=== PATIENT | male | born 1960 | race Caucasian/White ===

== ENCOUNTER 2020-07-28 12:07 | Emergency (ER) | payer OTHER ==
--- NOTE | 2020-07-28 13:01 | RAD ---
EXAM: Portable chest PROVIDED CLINICAL HISTORY: Dyspnea COMPARISON: None FINDINGS: Cardiac and mediastinal silhouette is within normal limits. No focal consolidation, pleural fluid or pneumothorax evident. Median sternotomy changes are seen. There is incomplete inclusion of the left lateral costophrenic angle, limiting evaluation for pleural fluid. IMPRESSION: No evidence for an acute cardiopulmonary process.
[2020-07-28 13:06] LABS: #Eosinphils 0.3 thou/uL (0.0-0.7); #Lymphocytes 2.2 thou/uL (1.20-3.40); #Monocytes 1.4 thou/uL (0.11-0.59); %Basophils 0.2 % (0.0-1.0); %Eosinophils 2.7 % (0.0-10.0); %Lymphocytes 18.4 % (21.0-51.0); %Monocytes 11.4 % (0.0-10.0); %Neutrophils 67.3 % (42.0-75.0); Hemoglobin 10.4 g/dL (14.0-18.0); Mean Corpuscular HGB CONC 33.8 g/dL (32.0-36.0); Mean Corpuscular Hemoglobin 31.5 pg (27.0-31.0); Mean Corpuscular Volume 93.4 fL (78.0-98.0); Mean Platelet Volume 7.4 fL (7.4-10.4); Platelet Count 305 thou/uL (130-400); RBC Distribution Width 13.5 % (11.5-14.5); Red Blood Cell (RBC) Count 3.31 mill/uL (4.70-6.10); White Blood Cell (WBC) Count 11.9 thou/uL (4.8-10.8)
[2020-07-28 13:07] LABS: Bilirubin Negative (Negative); Blood, Urine Negative (Negative); Clarity Clear (Clear); Glucose, Urine (Dipstick) Normal (Negative); Ketone, Urine Negative (Negative); Leukocyte Negative Leu/uL (Negative); Nitrite Negative (Negative); Protein, Urine (Dipstick) Negative (Neg-Trace); Specific Gravity, Urine 1.007 (1.002-1.036); Urobilinogen Normal mg/dL (Less than 2)
[2020-07-28 13:30] LABS: ALT (SGPT) 13 U/L (8-55); AST (SGOT) 13 U/L (5-34); Albumin 3.2 g/dL (3.4-4.8); Alkaline Phosphatase 62 U/L (40-110); Anion Gap 14 mmol/L (10-20); BUN (Urea Nitrogen) 5 mg/dL (8.4-25.7); CK (CPK) 128 U/L (30-200); Calc. Creatinine Clearance 0 mL/min (70-130); Calcium 7.7 mg/dL (7.8-10.44); Carbon Dioxide 22 mmol/L (23-31); Chloride 95 mmol/L (98-107); Globulin 2.7 g/dL (2.4-3.5); Glucose 87 mg/dL (80-115); Lipase 59 U/L (8-78); Potassium 3.4 mmol/L (3.5-5.1); Protein, Total 5.9 g/dL (5.8-8.1); Sodium 128 mmol/L (136-145)
[2020-07-28] MEDS ORDERED: methylPREDNISolone Sod Succ/PF 125 MG/2 ML VIAL ONE (14:26)
[2020-07-28 18:36] LABS: SARS-CoV-2 MS2 Positive; SARS-CoV-2 N Gene Negative; SARS-CoV-2 S Gene Negative; SARS-CoV-2 by NAA Not Detected (NotDetected); SARS-CoV-2 orf1ab Negative
== END 2020-07-28 14:36 | disposition home or self-care (01) ==
LOC: ERS 12:07
DX: J45.909 Unspecified asthma, uncomplicated (principal); Z95.1 Presence of aortocoronary bypass graft; E78.5 Hyperlipidemia, unspecified; I10 Essential (primary) hypertension; F17.210 Nicotine dependence, cigarettes, uncomplicated; Z79.899 Other long term (current) drug therapy
CPT/HCPCS: 71045; 80053; 81003; 82550; 83605; 83690; 83880; 84484; 85025; 87040; 87635; 87804; 93005; 96374; J2930; U0003

== ENCOUNTER 2020-09-24 02:41 | Inpatient (IN) | payer OTHER ==
[2020-09-24 03:19] LABS: #Basophils 0.1 thou/uL (0.0-0.2); #Eosinphils 0.2 thou/uL (0.0-0.7); #Lymphocytes 1.6 thou/uL (1.20-3.40); #Monocytes 0.6 thou/uL (0.11-0.59); #Neutrophils 2.6 thou/uL (1.40-6.50); %Basophils 1.4 % (0.0-1.0); %Eosinophils 4.7 % (0.0-10.0); %Lymphocytes 31.3 % (21.0-51.0); %Monocytes 11.1 % (0.0-10.0); %Neutrophils 51.5 % (42.0-75.0); Hemoglobin 14.4 g/dL (14.0-18.0); Mean Corpuscular HGB CONC 36.9 g/dL (32.0-36.0); Mean Corpuscular Volume 92.1 fL (78.0-98.0); Mean Platelet Volume 7.7 fL (7.4-10.4); Platelet Count 239 thou/uL (130-400); RBC Distribution Width 13.2 % (11.5-14.5); Red Blood Cell (RBC) Count 4.23 mill/uL (4.70-6.10)
[2020-09-24] MEDS ORDERED: Ondansetron ODT 8 MG TAB ONE (03:32)
[2020-09-24 03:41] LABS: ALT (SGPT) 10 U/L (8-55); AST (SGOT) 18 U/L (5-34); Albumin 4.1 g/dL (3.4-4.8); Alcohol 192 mg/dL (Less than 10); Alkaline Phosphatase 83 U/L (40-110); Anion Gap 15 mmol/L (10-20); BUN (Urea Nitrogen) 13 mg/dL (8.4-25.7); Bilirubin, Total 0.3 mg/dL (0.2-1.2); Calc. Creatinine Clearance 0 mL/min (70-130); Calcium 8.5 mg/dL (7.8-10.44); Carbon Dioxide 22 mmol/L (23-31); Chloride 95 mmol/L (98-107); Globulin 3.3 g/dL (2.4-3.5); Glucose 96 mg/dL (80-115); Potassium 4.1 mmol/L (3.5-5.1); Protein, Total 7.4 g/dL (5.8-8.1); Sodium 128 mmol/L (136-145)
--- NOTE | 2020-09-24 05:08 | PDOC.HHP ---
Hospitalist HPI AMS History of Present Illness: This is a 60-year-old male patient with a history of coronary disease status post CABG, hypertension, hyperlipidemia asthma was brought in by the Police Department after he was found crouching on the side of the road apparently intoxicated. At the time of my evaluation patient was still intoxicated and was not very coherent. He however did state he was going to his home walking. Also notes that he is in a lot of pain in his hip and he got some alcohol to help numb the pain. Also complained of epigastric pain and nausea. At presentation blood pressure was 178/96, pulse 95, respiratory rate 18, temperature 97.5 and saturation 98% on room air. His labs showed hyponatremia of 128 and plasma alcohol level of greater than 192. Head CT showed lesion in the left frontal lobe which could represent infarct or contusion. Follow-up MRI has been recommended. He had a hip x-ray which was negative for any lesion. He received aspirin and ondansetron. ED team talked to neurosurgery about left frontal lobe lesion and they stated it required no surgical intervention. Hospitalist team was consulted for admission. Allergies/Adverse Reactions: Allergy/AdvReac Type Severity Reaction Status Date / Time No Known Drug Allergies Allergy Verified 09/24/20 09:06 Home Medications: Medication Instructions Recorded Confirmed Type Albuterol Sulfate HFA (OR) 1 puff INH PRN PRN 09/24/20 09/24/20 History [Proventil Hfa (or)] Allopurinol [Zyloprim] 100 mg PO DAILY 09/24/20 09/24/20 History Atorvastatin Calcium [Lipitor] 40 mg PO DAILY 09/24/20 09/24/20 History Lisinopril [Zestril] 10 mg PO DAILY 09/24/20 09/24/20 History Pantoprazole [Protonix] 40 mg PO DAILY 09/24/20 09/24/20 History Aspirin [Aspirin EC] 81 mg PO DAILY 09/28/20 09/28/20 History Cefdinir [Omnicef] 600 mg PO DAILY #5 cap 09/28/20 Rx Folic Acid [Folvite] 1 mg PO DAILY #30 tab 09/28/20 Rx Thiamine 100 mg PO DAILY #30 tab 09/28/20 Rx Past History: PMHx:coronary disease status post CABG, hypertension, hyperlipidemia asthma PSHx:CABG, Hip replacement FHx:None of significance Social:Drinks alcohol regularly, smokes. no illicit drug use Hospitalist HPI ROS Constitutional: reports: weakness, malaise. denies: fever, chills, sweats Respiratory: denies: cough, shortness of breath, hemoptysis, SOB with excertion Cardiovascular: denies: chest pain, palpitations, orthopnea, paroxysmal noc. d yspnea Gastrointestinal: reports: nausea, vomiting, abdominal pain. denies: diarrhea (Epigastric), constipation Genitourinary: denies: dysuria, frequency, incontinence, hematuria Musculoskeletal: reports: back pain. denies: neck pain, shoulder pain, arm pain, hand pain, leg pain Skin: denies: rash, lesions Neurological: denies: weakness, numbness, incoordination, change in speech All other systems reviewed; all pertinent +/- noted in HPI/Subj Hospitalist Exam General - other findings: Awake and alert. However intoxicated Eye: PERRL, anicteric sclera ENT: normocephalic atraumatic Heart: RRR, no murmur, no gallops, no rubs Respiratory: CTAB, no wheezes, no rales, no ronchi Gastrointestinal: soft, non-distended, normal bowel sounds, tender to palpation (Epigastric) Extremities: negative: no cyanosis, no clubbing, no edema Extremities - other findings: Right buttocks swelling, tender Neurological: negative: cranial nerve grossly intact, no focal deficits Neurological - other findings: Generally tremulous from intoxication Psychiatric: A&O x 3 Psychiatric - other findings: Intoxicated. Hospitalist Results Result Diagrams: 09/27/20 05:12 09/27/20 05:12 Lab results: Laboratory Last Values WBC 5.0 thou/uL (4.8-10.8) 09/24/20 03:12 RBC 4.23 mill/uL (4.70-6.10) L 09/24/20 03:12 Hgb 14.4 g/dL (14.0-18.0) 09/24/20 03:12 Hct 38.9 % (42.0-52.0) L 09/24/20 03:12 MCV 92.1 fL (78.0-98.0) 09/24/20 03:12 MCH 34.0 pg (27.0-31.0) H 09/24/20 03:12 MCHC 36.9 g/dL (32.0-36.0) H 09/24/20 03:12 RDW 13.2 % (11.5-14.5) 09/24/20 03:12 Plt Count 239 thou/uL (130-400) 09/24/20 03:12 MPV 7.7 fL (7.4-10.4) 09/24/20 03:12 Neutrophils % 51.5 % (42.0-75.0) 09/24/20 03:12 Lymphocytes % 31.3 % (21.0-51.0) 09/24/20 03:12 Monocytes % 11.1 % (0.0-10.0) H 09/24/20 03:12 Eosinophils % 4.7 % (0.0-10.0) 09/24/20 03:12 Basophils % 1.4 % (0.0-1.0) H 09/24/20 03:12 Neutrophils # 2.6 thou/uL (1.40-6.50) 09/24/20 03:12 Lymphocytes # 1.6 thou/uL (1.20-3.40) 09/24/20 03:12 Monocytes # 0.6 thou/uL (0.11-0.59) H 09/24/20 03:12 Eosinophils # 0.2 thou/uL (0.0-0.7) 09/24/20 03:12 Basophils # 0.1 thou/uL (0.0-0.2) 09/24/20 03:12 Sodium 128 mmol/L (136-145) L 09/24/20 03:12 Potassium 4.1 mmol/L (3.5-5.1) 09/24/20 03:12 Chloride 95 mmol/L (98-107) L 09/24/20 03:12 Carbon Dioxide 22 mmol/L (23-31) L 09/24/20 03:12 Anion Gap 15 mmol/L (10-20) 09/24/20 03:12 BUN 13 mg/dL (8.4-25.7) 09/24/20 03:12 Creatinine 0.86 mg/dL (0.7-1.3) 09/24/20 03:12 Estimated GFR (MDRD) 90 09/24/20 03:12 Glucose 96 mg/dL (80-115) 09/24/20 03:12 Calcium 8.5 mg/dL (7.8-10.44) 09/24/20 03:12 Total Bilirubin 0.3 mg/dL (0.2-1.2) 09/24/20 03:12 AST 18 U/L (5-34) 09/24/20 03:12 ALT 10 U/L (8-55) 09/24/20 03:12 Alkaline Phosphatase 83 U/L (40-110) 09/24/20 03:12 Serum Total Protein 7.4 g/dL (5.8-8.1) 09/24/20 03:12 Albumin 4.1 g/dL (3.4-4.8) 09/24/20 03:12 Globulin 3.3 g/dL (2.4-3.5) 09/24/20 03:12 Albumin/Globulin Ratio 1.2 g/dL (1.2-2.2) 09/24/20 03:12 Plasma Alcohol 192 mg/dL (Less than 10) H 09/24/20 03:12 Hospitalist H&P A/P Plan: This is a 60-year-old male patient with a history of coronary disease at this post CABG, bilateral hip replacements, hypertension who was brought in into [facility] found by the road by the Police Department. Acute encephalopathy Secondary to alcohol intoxication/head trauma We will monitor Start on ASV protocol as indicated. Left frontal lobe lesion Possible infarct/traumatic Neurosurgery consultedno plans from them MRI in a.m. Neurology evaluation. Nausea and vomiting Likely secondary to intoxication As needed Zofran Maintenance IV fluid Continue monitoring. Epigastric pain Likely gastritis from alcoholism We will however check troponin given his cardiac history Hyponatremia Possibly due to dehydration from vomiting Also due to alcoholism This is mild [id number] Monitor BMP Coronary disease status post CABG Resume home medications once verified. Right hip pain X-ray shows no acute lesion Has a small hump in the buttocks region however. May benefit from follow-up CT Conservative orthopedic surgery evaluation. CODE STATUSfull code VTE prophylaxisLovenox
[2020-09-24] MEDS ORDERED: Diazepam 5 MG TAB PO PRN (05:13)
[2020-09-24] MEDS ORDERED: Sodium Chloride 0.9% (PF) 10 ML VIAL FS PRN (05:15)
[2020-09-24] MEDS ORDERED: Famotidine/PF 20 mg/2ml Vial ONE (05:19)
[2020-09-24] MEDS ORDERED: Aspirin Chewable 81 MG TAB ONE (05:27)
[2020-09-24 05:41] LABS: Acetaminophen Less than 6.0 mcg/mL (10.0-30.0); Alcohol 192 mg/dL (Less than 10); Salicylate Less than 8.0 mg/dL (15.0-30.0)
[2020-09-24] MEDS ORDERED: Thiamine HCl 200 MG/2 ML VIAL IM SCH (06:00)
[2020-09-24] MEDS ORDERED: Diazepam 5 MG TAB PO SCH (06:00)
[2020-09-24 07:10] LABS: Troponin I Less than 0.010 ng/mL (< 0.028)
--- NOTE | 2020-09-24 07:46 | CT ---
PRELIMINARY REPORT/[facility]/EMERGENCY AFTER HOURS PROCEDURE EXAM: CT Head Without Intravenous Contrast. CLINICAL HISTORY: ETOH FALL TECHNIQUE: Axial computed tomography images of the head/brain without intravenous contrast. COMPARISON: None provided. FINDINGS: BRAIN: No acute intraparenchymal hemorrhage. No mass lesion. There is a focal area of decreased density in t he left frontal lobe with loss of mitchell and white matter differentiation, may represent ischemia versus a contusion. No midline shift or extra-axial collection. VENTRICLES: No hydrocephalus. ORBITS: The orbits are unremarkable. SINUSES AND MASTOIDS: The paranasal sinuses and mastoid air cells are clear. SOFT TISSUES: No significant facial or scalp soft tissue swelling evident. No radiopaque foreign body is seen. BONES: No acute skull fracture. IMPRESSION: There is a focal area of decreased density in the left frontal lobe with loss of mitchell and white matte r differentiation, may represent ischemia versus a contusion. This may be further evaluated with MRI if clinically indicated. ELECTRONICALLY SIGNED BY: Felix Hebert MD Sep 24, 2020 3:47:52 AM [employer] DIRECTOR This report is intended for review by the ordering physician only, in accordance of law. If you recei ve this report in error, please call [facility] at [phone]. FINAL REPORT Exam: Head CT without contrast HISTORY: Altered mental status COMPARISON: none FINDINGS: Hemorrhage: No intraparenchymal hemorrhage or extra-axial hematoma. Brain parenchyma: Loss of mitchell-white matter differentiation involving the left frontal lobe. No signi ficant volume loss. Indeterminate focus of ischemia is favored. Nonhemorrhagic contusion cannot be entirely excluded. Ventricular system: Ventricles and sulci are patent and symmetric. Calvarium: Intact. Sinuses and mastoid air cells: Adequate aeration. IMPRESSION: 1. This report is in agreement with initial report by [facility]. 2. Loss of mitchell-white matter differentiation without significant volume loss involving the left front al lobe. Further evaluation with brain MRI may be beneficial. Transcribed Date/Time: 09/24/2020 8:06 AM
--- NOTE | 2020-09-24 08:09 | RAD ---
Exam: XR Hip Rt 2-3 View HISTORY: Right-sided buttock pain. COMPARISON: None FINDINGS: Right total hip prosthesis is noted. No fracture or dislocation is seen. No hardware complication is appreciated. Degenerative changes are seen in the pubic symphysis. IMPRESSION: Right total hip prosthesis without evidence of an acute osseous abnormality.
--- NOTE | 2020-09-24 08:55 | PRG ---
DATE OF SERVICE: 09/24/2020 I personally interviewed and examined the patient, agreed with documentation of Rob Kumar PA-C, dated 09/24/2020. 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 He came to our emergency department yesterday after being found down by the police department. He is having difficulty with the pain in the right gluteal musculature and difficulty maintaining his balance on ice and snow. Through the emergency department, he had a CT examination of the brain. This showed some encephalomalacia of the right frontal lobe, and Neurosurgery was consulted for that. Overnight, Mr. Yang's alcohol intoxication is worn off. He is feeling a bit better, but still in some pain in the posterior gluteal area I do not see any fevers recorded. Blood pressures have been too high. They were in the 160s/100s. Mr. Yang has some halting speech and tangential thinking that can carry on a conversation. His cranial nerves seem to be intact. There is mild right hemiparesis and some spasticity. Imaging shows decreased density of the right frontal lobe centered on an area where there was bony ridge in the anterior fossa of the cranial cavity. I do not believe Mr. Yang's imaging findings will require neurosurgical attention. There is no hyperdensity there. There is no bleeding, most likely cause for the decreased brain density in that area. There could be an old brain contusion that has resolved. This is in a typical location for a brain contusion just above the floor of the anterior fossa, especially when there bony ridges next to the brain. A little less likely is that the source is another stroke. His secondary prevention after his first stroke is problematic due to his lack of followup in compliance with recommendations. Finally, an even rarer would be some sort of neoplasm or infectious process. I think these two are very unlikely. The sort of the true etiology is an MRI scan of the brain, can be added to his previously planned MRI scan of the abdomen. We will follow up tomorrow. It is unlikely to offer any neurosurgical intervention for the brain lesion. Job ID: [id number] MTDD
[2020-09-24 09:10] VITALS: BMI 29.7
--- NOTE | 2020-09-24 09:11 | RAD ---
Exam: Chest one view HISTORY:Epigastric and retrosternal pain Comparison: 07/28/2020 FINDINGS: Cardiac silhouette:Normal cardiac silhouette. There are stable sternotomy wires Aorta: Unremarkable Pulmonary vessels: Normal Costophrenic angles: Clear LUNGS: No masses or consolidation. Pneumothorax: None Osseous abnormalities: None IMPRESSION: No acute cardiopulmonary process.
--- NOTE | 2020-09-24 09:46 | CON ---
DATE OF CONSULTATION: 09/24/2020 This is Severiano Holguin PA-C dictating a report for Stephan Holcomb MD. REQUESTING PHYSICIAN: Willian Loera M.D. REASON FOR CONSULTATION: Right buttock and hip pain. BRIEF CLINICAL HISTORY: Abdon is a 60-year-old male, who was brought to [facility] Emergency Room by the local police department after he was found down on the sidewalk yesterday evening. He was intoxicated and this was demonstrated with blood alcohol, but he has also had a prior stroke and bilateral total hip arthroplasties performed [facility] about five or six years ago a year apart. Plain radiographs have been obtained of the right hip, which demonstrate a press-fit prosthesis with two acetabular screws, but otherwise in decent alignment. The cup was a little horizontal and a little bit of a retroverted, but otherwise there is no dislocation noted. The patient has discomfort in the right buttock, which has been present for several months in the form of a what he feels like is a fluid collection just below the right acetabular rim. He indicates he has been seen for this here locally, but does not remember the name of the physician believe aspiration was attempted in the clinic, but he was told this might need to be evacuated in the operating suite. This has been a chronic problem now for the last six months or so. His fall, which is what brought him to the hospital has not disturbed his hardware. Otherwise, he is able to tolerate pain currently. He did have a cerebral contusion, but MRIs have been obtained to re-evaluate this. Exam, leg lengths are equal. There is no malrotation or external rotation or internal rotation of the right lower extremity relative to the left. Leg lengths were symmetric. He has adequate range of motion, non provocative with flexion, extension, internal, external rotation of the femur. IMAGING STUDIES: To the right hip demonstrates press-fit right total hip arthroplasty in acceptable alignment. No dislocation or fracture is identified. IMPRESSION: Right hip contusion secondary to fall. PLAN: No change in prosthesis noted on x-ray, but his fluid accumulation needs to be worked as an outpatient and advised that no surgical recommendations are made for his prosthesis or his chronic fluid collection. From an orthopedic standpoint, he may be weightbearing as tolerated. Activities as tolerated and re-consult as needed. He may follow up about his right subcutaneous fluid collection as an outpatient. Job ID: [id number]
[2020-09-24] MEDS: Mag-Al Plus 1200 MG/1200 MG/120 MG/30 ML UDCUP PO SCH ×3 (10:45→17:03)
[2020-09-24] MEDS: Sodium Chloride 0.9% 1,000 ML IV SCH ×3 (10:46→21:08)
[2020-09-24] MEDS: Enoxaparin Sodium 40 MG/0.4 ML SYRINGE SC SCH (10:46)
[2020-09-24] MEDS: Pantoprazole 40 MG VIAL IVP SCH ×2 (10:47→21:00)
[2020-09-24] MEDS: Folic Acid 1 MG TAB PO SCH (10:47)
[2020-09-24] MEDS: Aspirin 81 mg Enteric Coated Tablet PO SCH (10:47)
[2020-09-24] MEDS: Multivitamin W/ Minerals 1 TAB PO SCH (10:47)
--- NOTE | 2020-09-24 11:28 | CON ---
DATE OF CONSULTATION: 09/24/2020 CHIEF COMPLAINT: Intoxication versus AMS. HISTORY OF PRESENT ILLNESS: Mr. Yang is a 60-year-old male with prior history of coronary artery disease, post CABG, hypertension, hyperlipidemia, asthma, and a stroke last year, in which he states he lost all mobility. He was found crouching down on the side of the highway, apparently intoxicated by the police department. The patient was brought to [facility] for further evaluation. He was found to have elevated blood pressure and hyponatremia. Head CT showed a left frontal lobe with loss of mitchell and white matter, which may represent ischemia versus contusion. MRI has been ordered. When I spoke to Mr. Yang, he admitted to drinking small amounts of alcohol last night. His speech is slurred and his answers are very long winded. He does tell me his left foot has been numb for a while. He has free active range of motion on all extremities. There is no focal motor weakness. REVIEW OF SYSTEMS: CONSTITUTIONAL: Denies fever or chills. ENT: Denies change in vision or hearing. CARDIAC: Denies chest pain, shortness of breath, or diaphoresis. PULMONARY: Denies shortness of breath, cough, or hemoptysis. GI: Denies abdominal pain, nausea, vomiting, diarrhea, or change in stool formation or consistency. : Denies trouble with urination, frequency of urination, or bloody urine. SKIN: Denies skin rash, bruising, bleeding, or skin masses. MUSCULOSKELETAL: Right hip pain. NEUROLOGICAL: As per history of present illness. PSYCHOLOGICAL: As per history of present illness. PAST MEDICAL HISTORY: 1. CABG x1. 2. Hyperlipidemia. 3. Hypertension. 4. Asthma. 5. CVA. PAST SURGICAL HISTORY: Bilateral hip replacement. PSYCHIATRIC HISTORY: Depression. SOCIAL HISTORY: The patient drinks socially. Denies illicit drugs. Currently uses tobacco. Smoking cigarettes. MEDICATIONS: 1. Allopurinol 100 mg. 2. Atorvastatin 40 mg. 3. Lisinopril 10 mg. 4. Pantoprazole 40 mg. 5. Albuterol 90 mcg. 6. Prednisone 50 mg. FAMILY HISTORY: Noncontributory. PHYSICAL EXAMINATION: VITAL SIGNS: Blood pressure 178/96, pulse 95, temperature 98.0. HEENT: Pupils are equal. Extraocular movements are intact. NECK: Soft, supple. No masses are noted. Range of motion is intact and nonpainful. NEUROLOGIC: Awake, alert, and oriented x3. Memory, attention, fund of knowledge normal. Cranial nerves are grossly intact. EXTREMITIES: Upper extremities, he has good strength in his bilateral deltoids, biceps, triceps, wrist extension, finger extension, finger intrinsics. Sensation equal bilaterally. Lower extremities, he has good strength bilaterally in his iliopsoas, quadriceps, hamstrings, anterior tib, EHL, and gastrocnemius. Reports left foot numbness. The toes are downgoing. LABORATORY DATA: WBC 5.0, platelets 239. Sodium 128. Plasma alcohol 192. IMAGING DATA: As mentioned in the above HPI. ASSESSMENT: 1. Altered mental status versus intoxication. 2. Right hip pain. 3. Left frontal lobe with loss of mitchell and white matter may represent ischemia versus contusion. PLAN: Question of 3 to 4 week old contusionl. Recommend Brain MRI. If MRI shows a hypodensity of the left frontal lesion, Neurosurgery will follow up. We will transfer care to the Medicine Service. Supportive care. No intracranial surgery at this time. We will have him followup in 6 weeks in our clinic and repeat appropriate scans. Job ID: [id number] [facility]
--- NOTE | 2020-09-24 11:58 | PDOC.HOSPP ---
- Subjective Encounter Date: 09/24/20 - Objective Vital Signs & Weight: Vital Signs (12 hours) Temp Pulse Resp BP BP BP Pulse Ox 09/24/20 11:38 97.6 F 89 20 187/118 H 98 09/24/20 07:49 97.5 F L 74 16 152/106 H 98 09/24/20 07:02 160/112 H 09/24/20 06:19 98.1 F 82 20 160/112 H 99 Weight Weight 213 lb 11.2 oz I&O: 09/23/20 09/24/20 09/25/20 06:59 06:59 06:59 Output Total 350 Balance -350 Result Diagrams: 09/24/20 03:12 09/24/20 03:12 Hospitalist ROS - Medication Medications: Active Medications Generic Name Dose Route Start Last Admin Trade Name Freq PRN Reason Stop Dose Admin Al Hydroxide/Mg Hydroxide 30 ml 09/24/20 06:00 09/24/20 10:46 Mag-Al Plus 1200 Mg/1200 Mg/120 Mg/30 Ml Udcup PO 30 ml Q6HR COOKIE Administration Aspirin 81 mg 09/24/20 09:00 09/24/20 10:47 Aspirin 81 Mg Enteric Coated Tablet PO 81 mg DAILY COOKIE Administration Enoxaparin Sodium 40 mg 09/24/20 09:00 09/24/20 10:46 Enoxaparin Sodium 40 Mg/0.4 Ml Syringe SC 40 mg 0900 COOKIE Administration Folic Acid 1 mg 09/24/20 09:00 09/24/20 10:47 Folic Acid 1 Mg Tab PO 1 mg DAILY COOKIE Administration Sodium Chloride 1,000 mls @ 100 mls/hr 09/24/20 06:30 09/24/20 10:46 Normal Saline 0.9% IV 1,000 mls .Q10H COOKIE Administration Iron/Minerals/Multivitamins 1 tab 09/24/20 09:00 09/24/20 10:47 Multivitamin W/ Minerals 1 Tab PO 1 tab DAILY COOKIE Administration Pantoprazole Sodium 40 mg 09/24/20 09:00 09/24/20 10:47 Pantoprazole 40 Mg Vial IVP 40 mg Q12HR COOKIE Administration Hospitalist Exam Vitals: Vital Signs (12 hours) Temp Pulse Resp BP BP BP Pulse Ox 09/24/20 11:38 97.6 F 89 20 187/118 H 98 09/24/20 07:49 97.5 F L 74 16 152/106 H 98 09/24/20 07:02 160/112 H 09/24/20 06:19 98.1 F 82 20 160/112 H 99 Weight Weight 213 lb 11.2 oz Hosp A/P (1) Confusion Code(s): R41.0 - DISORIENTATION, UNSPECIFIED Status: Acute (2) Hyponatremia Code(s): E87.1 - HYPO-OSMOLALITY AND HYPONATREMIA Status: Acute (3) Alcoholism Code(s): F10.20 - ALCOHOL DEPENDENCE, UNCOMPLICATED Status: Acute (4) Hypertension Code(s): I10 - ESSENTIAL (PRIMARY) HYPERTENSION Status: Acute (5) Coronary artery disease Code(s): I25.10 - ATHSCL HEART DISEASE OF [place] CORONARY ARTERY W/O ANG PCTRS Status: Acute - Plan This is a 60-year-old male patient who was brought for confusion thought to be secondary to alcohol intoxication CT of the head showed lesion in the left frontal lobe Upon further questioning patient described to me having difficulty with his balance since June, he did mention double vision as well, he did mention multiple falls. Neuro--- confusion possibly due to alcoholism also he is hyponatremic, he is on thiamine folic acid. Abnormal CT but neurosurgery they are not concerned, nevertheless an MRI was done and showed dural enhancement along the left frontal convexity, there is an extra-axial mass with intrinsic T1 hyperintensity and peripheral enhancement along the left frontal convexity. There is associated restricted diffusion and hypodensity in the axial gradient echo sequence. hematology oncology consulted. Cardiac--- hypertension, will restart him on his home medications when they are verified also on IV hydralazine as needed. Renal--- hyponatremia--we will hydrate and recheck in a.m. Musculoskeletal--right hip pain was seen by Ortho they recommended weightbearing as tolerated and for the fluid collection he can follow-up with them as an outpatient. Patient seems to have been struggling with that fluid collection for a while, it seems that he did see an orthopedic surgeon as an outpatient, not very clear what was the plan of care. For DVT prophylaxis he is on Lovenox subcu.
--- NOTE | 2020-09-24 11:58 | MRI ---
BRAIN MRI WITH AND WITHOUT CONTRAST: HISTORY: Possible brain lesion. Stroke.. COMPARISON: None. FINDINGS: Calvarial marrow signal intensity: Appropriate T1 signal. Gradient echo sequence: There is evidence of hemosiderin deposition along the surface of the left fro ntal lobe and medial right frontal lobe. Brain parenchyma: There is T2 and FLAIR hyperintensity involving the anterior pole of the right middl e lobe and left frontal lobe. There is mild sulcal effacement along the left frontal lobe. Cortical mitchell-white matter differentiation: With the exception of the right temporal lobe and left fr ontal lobe, cortical mitchell-white matter differentiation is preserved. Restricted diffusion: Central arterial flow voids are maintained. Absent restricted diffusion. White matter signal intensities: T2, FLAIR white matter hyperintensities due to chronic small vessel ischemic changes. Sinuses: Adequate aeration of the paranasal sinuses and mastoid air cells. Postcontrast images: There is intrinsic T1 hyperintensity along the left frontal extra-axial space. T here is enhancement involving the left frontal dura. In the extraaxial space, there is a peripherally enhancing lesion with associated restricted diffusion and hypointensity in the axial gra dient echo sequence, measuring 1.1 x 1.2 cm. IMPRESSION: Dural enhancement along the left frontal convexity. There is an extraaxial mass with intrinsic T1 hyp erintensity and peripheral enhancement along the left frontal convexity. There is associated restricted diffusion and hypointensity in the axial gradient echo sequence. The possibility of an ext raaxial metastatic deposits with microscopic hemorrhage is raised. Transcribed Date/Time: 09/24/2020 12:07 PM
[2020-09-24] MEDS ORDERED: Albuterol Sulfate 1.25 MG/3 ML NEB INH PRN (12:44)
--- NOTE | 2020-09-24 13:57 | CON ---
NEUROLOGY CONSULTATION DATE OF CONSULTATION: 09/24/2020 REASON FOR CONSULTATION: Altered mental status. HISTORY OF PRESENT ILLNESS: Mr. Trey Mckeon is a 60-year-old male with medical history significant for coronary artery disease, status post CABG; hypertension; hyperlipidemia; asthma; presented to the emergency room after he was brought by the police department. He was found crouching on the side of the road. Apparently, intoxicated. The patient is a poor historian and pleasantly confused at this time and is unable to provide the history. History is obtained from review of the medical records. Per records, he was going home and had lot of pain in his hip and decided to get some alcohol to numb the pain and since then, he has been confused. On arrival to the emergency room, his blood pressure was 178/96, pulse 95, respiratory rate 18, and temperature 97.5. Labs were significant for hyponatremia with sodium of 128 and plasma alcohol level was greater than 192. Head CT showed left frontal lobe lesion. Neurosurgery was contacted and they did not think he is a candidate for surgical intervention. MRI of the brain was done this morning, which again showed the left frontal lobe lesion, which is concerning for metastatic brain disease. REVIEW OF SYSTEMS: Unobtainable due to the patient's mental status. ALLERGIES: NO KNOWN DRUG ALLERGIES. PAST MEDICAL HISTORY: 1. Coronary artery disease. 2. Hypertension. 3. Hyperlipidemia. 4. Asthma. PAST SURGICAL HISTORY: Status post CABG, bilateral hip replacement. FAMILY HISTORY: No significant family history. SOCIAL HISTORY: The patient has history of alcohol abuse. REVIEW OF SYSTEMS: Unobtainable due to the patient's mental status. He has baseline confusion. Vital Signs & Weight: Vital Signs (12 hours) Temp Pulse Resp BP BP BP Pulse Ox 09/24/20 11:38 97.6 F 89 20 187/118 H 98 09/24/20 07:49 97.5 F L 74 16 152/106 H 98 09/24/20 07:02 160/112 H 09/24/20 06:19 98.1 F 82 20 160/112 H 99 Weight Weight 213 lb 11.2 oz I&O: 09/23/20 09/24/20 09/25/20 06:59 06:59 06:59 Output Total 350 Balance -350 Active Medications Generic Name Dose Route Start Last Admin Trade Name Freq PRN Reason Stop Dose Admin Al Hydroxide/Mg Hydroxide 30 ml 09/24/20 06:00 09/24/20 10:46 Mag-Al Plus 1200 Mg/1200 Mg/120 Mg/30 Ml Udcup PO 30 ml Q6HR COOKIE Administration Aspirin 81 mg 09/24/20 09:00 09/24/20 10:47 Aspirin 81 Mg Enteric Coated Tablet PO 81 mg DAILY COOKIE Administration Enoxaparin Sodium 40 mg 09/24/20 09:00 09/24/20 10:46 Enoxaparin Sodium 40 Mg/0.4 Ml Syringe SC 40 mg 0900 COOKIE Administration Folic Acid 1 mg 09/24/20 09:00 09/24/20 10:47 Folic Acid 1 Mg Tab PO 1 mg DAILY COOKIE Administration Sodium Chloride 1,000 mls @ 100 mls/hr 09/24/20 06:30 09/24/20 10:46 Normal Saline 0.9% IV 1,000 mls .Q10H COOKIE Administration Iron/Minerals/Multivitamins 1 tab 09/24/20 09:00 09/24/20 10:47 Multivitamin W/ Minerals 1 Tab PO 1 tab DAILY COOKIE Administration Pantoprazole Sodium 40 mg 09/24/20 09:00 09/24/20 10:47 Pantoprazole 40 Mg Vial IVP 40 mg Q12HR COOKIE Administration Vital Signs (12 hours) Temp Pulse Resp BP BP BP Pulse Ox 09/24/20 11:38 97.6 F 89 20 187/118 H 98 09/24/20 07:49 97.5 F L 74 16 152/106 H 98 09/24/20 07:02 160/112 H 09/24/20 06:19 98.1 F 82 20 160/112 H 99 Weight Weight 213 lb 11.2 oz PHYSICAL EXAMINATION: GENERAL: Alert, awake male, in no acute distress. CVS: Regular rate and rhythm. CHEST: Clear. ABDOMEN: Soft. NECK: Supple. NEUROLOGICAL: Mental status, the patient is alert and oriented to person; place, [facility]; , September; but not to the year Motor; muscle tone and bulk are normal. Moving all 4 extremities equally and symmetrically. Sensory; withdraws to nailbed pressure bilaterally. Cerebellar; finger-nose testing intact. Gait deferred due to the patient's safety reason. DATA REVIEWED: Labs were reviewed, which were significant for hyponatremia. ASSESSMENT AND PLAN: (1) Confusion Code(s): R41.0 - DISORIENTATION, UNSPECIFIED Status: Acute (2) Hyponatremia Code(s): E87.1 - HYPO-OSMOLALITY AND HYPONATREMIA Status: Acute (3) Alcoholism Code(s): F10.20 - ALCOHOL DEPENDENCE, UNCOMPLICATED Status: Acute (4) Hypertension Code(s): I10 - ESSENTIAL (PRIMARY) HYPERTENSION Status: Acute (5) Coronary artery disease Code(s): I25.10 - ATHSCL HEART DISEASE OF [place] CORONARY ARTERY W/O ANG PCTRS Status: Acute Mr. Abdon Yang Jr is a 60-year-old male with medical history significant for coronary artery disease, status post CABG; bilateral hip replacements; hypertension; brought to the emergency room intoxicated and found by the police on the side of the road. Altered mental status seems to be secondary to alcohol intoxication. MRI of the brain reviewed, which showed dural enhancement along the left frontal convexity. There is an extra-axial mass with intrinsic T1 hyperintensity and peripheral enhancement along the left frontal convexity. There is associated restricted diffusion and hypodensity in the axial gradient echo sequence. The possibility of an extra-axial metastatic deposits with microhemorrhage is raised. Consider Oncology input regarding metastatic brain disease for further workup. Neuro checks every 4 hours. EEG to rule out cortical irritability. Alcohol cessation discussed with the patient. Telemetry to rule out arrhythmias. CIWA protocol. Continue home medications. Continue medical management per primary team. DVT prophylaxis. We will continue to follow. Thank you for the consult. Plan discussed in detail with the patient and the nursing staff. Job ID: [id number] MTDD
--- NOTE | 2020-09-24 15:55 | PDOC.EEG ---
Neurology EEG Report - Report Report: This EEG was performed using 24 channel [employer] video EEG machine with 24 disc electrodes. This was an extended 2 hours 5 minutes of inpatient video EEG recording. Digital analysis of the EEG was done for spike and seizure detection which revealed no abnormalities. Background: The posterior background rhythm is 9-10 Hz. The background rhythm attenuates with eye opening and enhances with eye closure. Hyperventilation: Not performed. Photic Stimulation: Bioccipital symmetric driving response is observed. Sleep: Drowsiness and sleep are observed. EEG Diagnosis: Occasional irregular theta activity seen during the recording. Clinical interpretation: This EEG is consistent with mild generalized nonspecific cerebral dysfunction.
[2020-09-24] MEDS: Acetaminophen 325 MG TAB PO PRN (17:03)
[2020-09-24] MEDS: hydrALAZINE 20 MG/ML VIAL SLOW IVP PRN (20:59)
[2020-09-25] MEDS: Mag-Al Plus 1200 MG/1200 MG/120 MG/30 ML UDCUP PO SCH ×5 (00:17→23:12)
[2020-09-25] MEDS: Acetaminophen 325 MG TAB PO PRN (00:18)
[2020-09-25] MEDS ORDERED: Diazepam 5 MG TAB PO PRN (04:00)
[2020-09-25] MEDS: Sodium Chloride 0.9% 1,000 ML IV SCH ×2 (05:22→14:57)
[2020-09-25] MEDS: Nitroglycerin 0.4 MG TAB (25 Tab Bottle) ONE ×2 (06:05→06:10)
[2020-09-25 06:09] LABS: Eosinophils 2 % (0-10); Hemoglobin 13.3 g/dL (14.0-18.0); Lymphocytes 35 % (21-51); MDiff Complete? YES; Mean Corpuscular HGB CONC 34.8 g/dL (32.0-36.0); Mean Corpuscular Hemoglobin 32.2 pg (27.0-31.0); Mean Corpuscular Volume 92.4 fL (78.0-98.0); Mean Platelet Volume 8.3 fL (7.4-10.4); Monocytes 8 % (0-10); Neutrophil 53 % (42-75); Platelet Count 227 thou/uL (130-400); Platelet Morphology Comment Appears Adequate; RBC Distribution Width 13.2 % (11.5-14.5); RBC Morphology Normal; Red Blood Cell (RBC) Count 4.12 mill/uL (4.70-6.10); White Blood Cell (WBC) Count 5.3 thou/uL (4.8-10.8)
[2020-09-25 06:14] LABS: Anion Gap 12 mmol/L (10-20); BUN (Urea Nitrogen) 11 mg/dL (8.4-25.7); Calc. Creatinine Clearance 127 mL/min (70-130); Calcium 8.9 mg/dL (7.8-10.44); Carbon Dioxide 23 mmol/L (23-31); Cardiac Risk 2.7 (Less than 4.5); Chloride 98 mmol/L (98-107); Cholesterol 156 mg/dl (< 200 Desired); Glucose 88 mg/dL (80-115); HDL Cholesterol 58 mg/dL (>60 Neg Risk); LDL Cholesterol, Calculated 80 mg/dL; Sodium 129 mmol/L (136-145); Triglycerides 89 mg/dL (Less than 150)
[2020-09-25] MEDS ORDERED: Morphine 2 MG/ML VIAL SLOW IVP SCH (06:15)
[2020-09-25] MEDS ORDERED: Aspirin Chewable 81 MG TAB PO SCH (06:15)
[2020-09-25 07:26] LABS: Troponin I Less than 0.010 ng/mL (< 0.028)
[2020-09-25] MEDS: Thiamine 100 MG TAB PO SCH (08:20)
[2020-09-25] MEDS: Lisinopril 10 MG TAB PO SCH (08:21)
[2020-09-25] MEDS: Allopurinol 100 MG TAB PO SCH (08:21)
[2020-09-25] MEDS: Folic Acid 1 MG TAB PO SCH (08:21)
[2020-09-25] MEDS: Magnesium Oxide 400 MG TAB PO SCH (08:21)
[2020-09-25] MEDS: Enoxaparin Sodium 40 MG/0.4 ML SYRINGE SC SCH (08:21)
[2020-09-25] MEDS: Aspirin 81 mg Enteric Coated Tablet PO SCH (08:21)
[2020-09-25] MEDS: Multivitamin W/ Minerals 1 TAB PO SCH (08:21)
[2020-09-25] MEDS: Pantoprazole 40 MG VIAL IVP SCH (08:22)
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
--- NOTE | 2020-09-25 10:33 | RAD ---
PORTABLE CHEST: HISTORY: Chest pain. COMPARISON: Prior day's study. FINDINGS: The heart size is within normal limits. There is postop sternotomy change. Slight increased density in the right mid lung field, more prominent than on the prior exam. Some of this could represent ov erlying soft tissue, but a developing infiltrate in this region is not excluded. IMPRESSION: Slightly more prominent density in the right mid lung field. I am not certain if this is just a tech nique related finding or related to some minimal developing infiltrate. I would favor that it is pro bably technique related. Followup chest film would be suggested. POS: VERONICA
[2020-09-25] MEDS ORDERED: Azithromycin 500 MG in Sodium Chloride 0.9% 250 ML 250 ML IVPB SCH (12:00)
[2020-09-25] MEDS ORDERED: cefTRIAXone\\ROCEPHIN 2 GM in Sodium Chloride 0.9% 100 ML IVPB SCH (12:00)
--- NOTE | 2020-09-25 12:12 | PDOC.HOSPP ---
- Subjective Encounter Date: 09/25/20 (f/u AMS) Encounter Time: 12:10 Subjective: Pt admitted for weakness and altered mental status with elevated alcohol level. Pt c/o toe being black - 2nd toe on right foot - ongoing issue with pain. He also c/o hearing changes. States he has had balance issues for quite some time. He reports falling prior to admission and being unable to get up. He denies any pain currently or other problems. - Objective Vital Signs & Weight: Vital Signs (12 hours) Temp Pulse Resp BP BP Pulse Ox 09/25/20 07:50 97.8 F 80 19 148/99 H 96 09/25/20 06:30 68 135/96 H 09/25/20 06:15 77 139/93 H 09/25/20 06:10 78 164/97 H 09/25/20 06:05 68 16 162/107 H 100 09/25/20 04:11 97.5 F L 70 16 151/97 H 97 09/25/20 04:00 151/97 H Weight Weight 213 lb 11.2 oz I&O: 09/24/20 09/25/20 09/26/20 06:59 06:59 06:59 Intake Total 1855 Output Total 800 Balance 1055 Result Diagrams: 09/25/20 04:42 09/25/20 04:42 EKG Reviewed by me: Yes (tele - sinus 70's) Hospitalist ROS - Medication Medications: Active Medications Generic Name Dose Route Start Last Admin Trade Name Freq PRN Reason Stop Dose Admin Acetaminophen 650 mg 09/24/20 16:07 09/25/20 00:18 Acetaminophen 325 Mg Tab PO 650 mg Q6H PRN Administration Pain Al Hydroxide/Mg Hydroxide 30 ml 09/24/20 06:00 09/25/20 05:20 Mag-Al Plus 1200 Mg/1200 Mg/120 Mg/30 Ml Udcup PO 30 ml Q6HR COOKIE Administration Allopurinol 100 mg 09/25/20 09:00 09/25/20 08:21 Allopurinol 100 Mg Tab PO 100 mg DAILY COOKIE Administration Aspirin 81 mg 09/24/20 09:00 09/25/20 08:21 Aspirin 81 Mg Enteric Coated Tablet PO 81 mg DAILY COOKIE Administration Enoxaparin Sodium 40 mg 09/24/20 09:00 09/25/20 08:21 Enoxaparin Sodium 40 Mg/0.4 Ml Syringe SC 40 mg 0900 COOKIE Administration Folic Acid 1 mg 09/24/20 09:00 09/25/20 08:21 Folic Acid 1 Mg Tab PO 1 mg DAILY COOKIE Administration Hydralazine HCl 5 mg 09/24/20 12:01 09/24/20 20:59 Hydralazine 20 Mg/Ml Vial SLOW IVP 5 mg Q4H PRN Administration Hypertension Iron/Minerals/Multivitamins 1 tab 09/24/20 09:00 09/25/20 08:21 Multivitamin W/ Minerals 1 Tab PO 1 tab DAILY COOKIE Administration Lisinopril 10 mg 09/25/20 09:00 09/25/20 08:21 Lisinopril 10 Mg Tab PO 10 mg DAILY COOKIE Administration Magnesium Oxide 400 mg 09/25/20 09:00 09/25/20 08:21 Magnesium Oxide 400 Mg Tab PO 400 mg DAILY COOKIE Administration Pantoprazole Sodium 40 mg 09/25/20 09:00 09/25/20 08:21 Pantoprazole 40 Mg Tab PO Not Given DAILY COOKIE Sodium Chloride 10 ml 09/24/20 05:15 09/25/20 08:22 Sodium Chloride 0.9% (Pf) 10 Ml Vial FS 10 ml PRN PRN Administration RECONSTITUTION Thiamine HCl 100 mg 09/25/20 09:00 09/25/20 08:20 Thiamine 100 Mg Tab PO 100 mg DAILY COOKIE Administration Hospitalist Exam Vitals: Vital Signs (12 hours) Temp Pulse Resp BP BP Pulse Ox 09/25/20 07:50 97.8 F 80 19 148/99 H 96 09/25/20 06:30 68 135/96 H 09/25/20 06:15 77 139/93 H 09/25/20 06:10 78 164/97 H 09/25/20 06:05 68 16 162/107 H 100 09/25/20 04:11 97.5 F L 70 16 151/97 H 97 09/25/20 04:00 151/97 H Weight Weight 213 lb 11.2 oz General Appearance: NAD Heart: RRR, no murmur Respiratory: CTAB, no wheezes, no rales, no ronchi Gastrointestinal: soft, non-tender, non-distended, normal bowel sounds Extremities: no cyanosis, no clubbing, no edema Extremities - other findings: right 2nd toe - callous vs wart with subcutaneous pinpoint hemorrhages Psychiatric - other findings: slowed speech - unknown baseline Hosp A/P (1) Hyponatremia Code(s): E87.1 - HYPO-OSMOLALITY AND HYPONATREMIA Status: Acute (2) Encephalopathy Code(s): G93.40 - ENCEPHALOPATHY, UNSPECIFIED Status: Acute (3) Pneumonia Code(s): J18.9 - PNEUMONIA, UNSPECIFIED ORGANISM Status: Suspected Qualifiers: Pneumonia type: due to unspecified organism Laterality: right Lung locati on: middle lobe of lung Qualified Code(s): J18.9 - Pneumonia, unspecified organism (4) Coronary artery disease Code(s): I25.10 - ATHSCL HEART DISEASE OF [place] CORONARY ARTERY W/O ANG PCTRS Status: Chronic (5) Hypertension Code(s): I10 - ESSENTIAL (PRIMARY) HYPERTENSION Status: Chronic Qualifiers: Hypertension type: essential hypertension Qualified Code(s): I10 - Essential (primary) hypertension (6) Abnormal MRI Code(s): R93.89 - ABNORMAL FINDINGS ON DX IMAGING OF OTH BODY STRUCTURES Status: Acute (7) Anemia Code(s): D64.9 - ANEMIA, UNSPECIFIED Status: Chronic Qualifiers: Anemia type: unspecified type Qualified Code(s): D64.9 - Anemia, unspecified (8) Tobacco abuse Code(s): Z72.0 - TOBACCO USE Status: Chronic (9) Alcohol abuse Code(s): F10.10 - ALCOHOL ABUSE, UNCOMPLICATED Status: Chronic - Plan Hyponatremia - appears euvolemic and may be secondary to alcohol use/abuse - d/c IVF - monitor - encourage alcohol cessation Balance changes - continue PT/OT Possible pneumonia - cover for aspiration with ceftriaxone and metronidazole Hx of stroke - continue aspirin Abnormal MRI - appreciate Neurosurgery recommendations - likely resolving contusion - f/u in outpatient setting in 4-6 weeks Hip effusion - f/u Ortho in outpatient setting Toe changes - small and c/w wart or callous. Defer to outpatient setting. dvt prophy - lovenox gi prophy - on home PPI Anticipate pt will need placement as a transition to home reviewed the plan of care with patient, no questions or further needs at end of eval.
[2020-09-25] MEDS: cefTRIAXone\\ROCEPHIN 1 GM in Sodium Chloride 0.9% 100 ML IVPB SCH (12:33)
[2020-09-25] MEDS: metroNIDAZOLE 500 MG in Premix Bag 1 BAG IVPB SCH ×2 (17:31→23:11)
--- NOTE | 2020-09-25 19:26 | CON ---
DATE OF CONSULTATION: REASON FOR CONSULT: Possible brain lesion. HISTORY OF PRESENT ILLNESS: Mr. Yang is a 60-year-old gentleman, who was brought in by police department after he was found on the side of the road. Apparently, he was intoxicated. He underwent a brain CT on arrival that showed a focal area of decreased density in the left frontal lobe with loss of mitchell and white matter differentiation, which could represent ischemia versus a contusion. His sodium was low on arrival. He was admitted and Neurosurgery was consulted as was Neurology. The patient was seen at bedside. He admits to a history of multiple falls. He had a fall in June and August. He states in August he hurt his wrist, his foot, and hit his face. He points to his left forehead, where he hit his head. He states he has had loss of hearing in his left ear. He denies any cough, hemoptysis, shortness of breath, weight loss, poor appetite, abdominal pain, or weakness. He states he smokes a carton cigarettes monthly and has for multiple years. He did have a chest x-ray on this admission, which showed no masses or nodules. He underwent a brain MRI. There was a dural enhancement along the left frontal convexity with possible extra-axial mass with intrinsic T1 hyperintensity and peripheral enhancement along the left frontal convexity. There was concern that this was extra-axial metastatic deposit. PAST MEDICAL HISTORY: Coronary artery disease, hypertension, hyperlipidemia, asthma. PAST SURGICAL HISTORY: CABG, hip replacements. ALLERGIES: NO KNOWN DRUG ALLERGIES. HOME MEDICATIONS: 1. Lipitor. 2. Protonix. 3. Proventil. 4. Zestril. 5. Allopurinol. FAMILY HISTORY: Noncontributory. SOCIAL HISTORY: He is single, lives in an . No illicit drug use. Occasional alcohol and daily smoking. REVIEW OF SYSTEMS: GENERAL: Denies any fever, chills, night sweats. ENT: Positive for blurred vision and hearing loss, chronic. CV: No chest pain, palpitations, or syncope. RESPIRATORY: No shortness of breath, dyspnea on exertion, orthopnea, or hemoptysis. : No dysuria or hematuria. MUSCULOSKELETAL: Positive for back pain. SKIN: No rash. HEMATOLOGICAL: No bleeding or bruising. NEUROLOGICAL: Positive for numbness in his left foot. PHYSICAL EXAMINATION: VITAL SIGNS: Temperature 97.8, pulse is 68, respiratory rate 20, blood pressure is 147/84. He is 98% on room air. GENERAL: This is a disheveled male, in no acute distress. HEENT: Normocephalic, atraumatic. Pupils are equal and reactive to light. NECK: Supple. CV: Regular rate and rhythm. LUNGS: Diminished throughout. ABDOMEN: Soft. Bowel sounds are positive. EXTREMITIES: No clubbing or cyanosis. SKIN: No rash. He does have a scab on his 2nd toe of his right foot. NEUROLOGICAL: Nonfocal. PERTINENT LABORATORY DATA AND X-RAYS: WBCs 5.3, hemoglobin 13.3, hematocrit 38.1, platelet count 227,000. He has 53% neutrophils, 35% lymphocytes. Sodium 129, potassium 4.0, chloride 98, CO2 is 23, BUN is 11, creatinine 0.84, calcium 8.9, bilirubin 0.3. AST is 18, ALT is 10, alkaline phosphatase is 83. Troponin negative. Serum total protein 7.4, albumin 4.1, globulin 3.3. Radiology per HPI. ASSESSMENT: 1. Hyponatremia, likely secondary to alcohol use. 2. History of falls with contusions. DISCUSSION: The patient's MRI has been evaluated by Neurosurgery. Dr. Cooley feels that the MRI suggests an old brain contusion and is a few weeks into its healing process. There is concern that it may be an abscess, but unlikely that it is a neoplasm. He shows no other evidence of cancer. No weight loss. No hemoptysis. No evidence of mass on chest x-ray. No GI complaints. I will defer to the Neurosurgery that this is in fact an old brain contusion. He was instructed to follow up with Dr. Cooley in the next several weeks to repeat the MRI. Should this change at that time and proved to be a malignant process, then he can follow up with Radiation Oncology or as needed. Thank you for the consult. Job ID: [id number] [facility]
[2020-09-25] MEDS: Atorvastatin Calcium 40 MG TAB PO SCH (21:07)
[2020-09-25] MEDS: hydrALAZINE 20 MG/ML VIAL SLOW IVP PRN (21:16)
[2020-09-26 05:16] LABS: Band 2 % (5-11); Eosinophils 2 % (0-10); Hemoglobin 12.5 g/dL (14.0-18.0); Hypochromia SLIGHT = 6-15 cells (100X) (0-5/hpf); Lymphocytes 26 % (21-51); MDiff Complete? YES; Mean Corpuscular Hemoglobin 30.2 pg (27.0-31.0); Mean Corpuscular Volume 91.6 fL (78.0-98.0); Mean Platelet Volume 8.2 fL (7.4-10.4); Monocytes 14 % (0-10); Neutrophil 54 % (42-75); Platelet Count 249 thou/uL (130-400); Platelet Morphology Comment Appears Adequate; RBC Distribution Width 13.1 % (11.5-14.5); Reactive Lymphocytes 2 % (0-10); Red Blood Cell (RBC) Count 4.14 mill/uL (4.70-6.10); White Blood Cell (WBC) Count 4.8 thou/uL (4.8-10.8)
[2020-09-26 05:24] LABS: Anion Gap 14 mmol/L (10-20); BUN (Urea Nitrogen) 11 mg/dL (8.4-25.7); Calc. Creatinine Clearance 120 mL/min (70-130); Calcium 8.6 mg/dL (7.8-10.44); Carbon Dioxide 22 mmol/L (23-31); Chloride 97 mmol/L (98-107); Glucose 113 mg/dL (80-115); Potassium 3.6 mmol/L (3.5-5.1); Sodium 129 mmol/L (136-145)
[2020-09-26] MEDS: Acetaminophen 325 MG TAB PO PRN ×3 (05:48→22:25)
[2020-09-26] MEDS: Mag-Al Plus 1200 MG/1200 MG/120 MG/30 ML UDCUP PO SCH ×4 (05:48→22:25)
[2020-09-26] MEDS: metroNIDAZOLE 500 MG in Premix Bag 1 BAG IVPB SCH ×4 (05:49→23:16)
--- NOTE | 2020-09-26 08:14 | PDOC.HOSPP ---
- Subjective Encounter Date: 09/26/20 (f/u hyponatremia) Encounter Time: 08:12 Subjective: 60 y/o male admitted for weakness, ams, hyponatremia and alcohol intoxication. Pt c/o back pain - states he has had this a long time, as well as the fluid collection near the right hip. He denies any n/v/abd pain. He is requesting coffee. - Objective Vital Signs & Weight: Vital Signs (12 hours) Temp Pulse Resp BP BP Pulse Ox 09/26/20 04:00 153/81 H 09/26/20 03:54 97.7 F 82 24 H 153/81 H 88 L 09/26/20 03:50 97.7 F 73 18 109/63 97 09/26/20 01:01 97.9 F 81 18 128/76 95 09/26/20 00:00 98.1 F 77 14 120/74 120/74 97 09/25/20 21:16 71 161/110 H Weight Weight 213 lb 11.2 oz I&O: 09/25/20 09/26/20 09/27/20 06:59 06:59 06:59 Intake Total 1855 2048 Output Total 800 2000 Balance 1055 48 Result Diagrams: 09/26/20 04:28 09/26/20 04:28 Hospitalist ROS - Medication Medications: Active Medications Generic Name Dose Route Start Last Admin Trade Name Dustinq PRN Reason Stop Dose Admin Acetaminophen 650 mg 09/24/20 16:07 09/26/20 05:48 Acetaminophen 325 Mg Tab PO 650 mg Q6H PRN Administration Pain Al Hydroxide/Mg Hydroxide 30 ml 09/24/20 06:00 09/26/20 05:48 Mag-Al Plus 1200 Mg/1200 Mg/120 Mg/30 Ml Udcup PO 30 ml Q6HR COOKIE Administration Allopurinol 100 mg 09/25/20 09:00 09/25/20 08:21 Allopurinol 100 Mg Tab PO 100 mg DAILY COOKIE Administration Aspirin 81 mg 09/24/20 09:00 09/25/20 08:21 Aspirin 81 Mg Enteric Coated Tablet PO 81 mg DAILY COOKIE Administration Atorvastatin Calcium 40 mg 09/25/20 21:00 09/25/20 21:07 Atorvastatin Calcium 40 Mg Tab PO 40 mg HS COOKIE Administration Enoxaparin Sodium 40 mg 09/24/20 09:00 09/25/20 08:21 Enoxaparin Sodium 40 Mg/0.4 Ml Syringe SC 40 mg 0900 COOKIE Administration Folic Acid 1 mg 09/24/20 09:00 09/25/20 08:21 Folic Acid 1 Mg Tab PO 1 mg DAILY COOKIE Administration Hydralazine HCl 5 mg 09/24/20 12:01 09/25/20 21:16 Hydralazine 20 Mg/Ml Vial SLOW IVP 5 mg Q4H PRN Administration Hypertension Ceftriaxone Sodium 1 gm/ 100 mls @ 200 mls/hr 09/25/20 13:00 09/25/20 12:33 Sodium Chloride IVPB 100 mls Q24HR COOKIE Administration Metronidazole 500 mg/ Device 100 mls @ 100 mls/hr 09/25/20 18:00 09/26/20 05:49 IVPB 100 mls Q6HR COOKIE Administration Iron/Minerals/Multivitamins 1 tab 09/24/20 09:00 09/25/20 08:21 Multivitamin W/ Minerals 1 Tab PO 1 tab DAILY COOKIE Administration Lisinopril 10 mg 09/25/20 09:00 09/25/20 08:21 Lisinopril 10 Mg Tab PO 10 mg DAILY COOKIE Administration Magnesium Oxide 400 mg 09/25/20 09:00 09/25/20 08:21 Magnesium Oxide 400 Mg Tab PO 400 mg DAILY COOKIE Administration Pantoprazole Sodium 40 mg 09/25/20 09:00 09/25/20 08:21 Pantoprazole 40 Mg Tab PO Not Given DAILY COOKIE Sodium Chloride 10 ml 09/24/20 05:15 09/25/20 08:22 Sodium Chloride 0.9% (Pf) 10 Ml Vial FS 10 ml PRN PRN Administration RECONSTITUTION Thiamine HCl 100 mg 09/25/20 09:00 09/25/20 08:20 Thiamine 100 Mg Tab PO 100 mg DAILY COOKIE Administration Hospitalist Exam Vitals: Vital Signs (12 hours) Temp Pulse Resp BP BP Pulse Ox 09/26/20 04:00 153/81 H 09/26/20 03:54 97.7 F 82 24 H 153/81 H 88 L 09/26/20 03:50 97.7 F 73 18 109/63 97 09/26/20 01:01 97.9 F 81 18 128/76 95 09/26/20 00:00 98.1 F 77 14 120/74 120/74 97 09/25/20 21:16 71 161/110 H Weight Weight 213 lb 11.2 oz General Appearance: NAD Heart: RRR, no murmur Respiratory: CTAB, no wheezes, no rales, no ronchi Gastrointestinal: soft, non-tender, non-distended, normal bowel sounds Extremities: no cyanosis, no clubbing, no edema Psychiatric - other findings: speech slowed - unknown baseline Hosp A/P (1) Hyponatremia Code(s): E87.1 - HYPO-OSMOLALITY AND HYPONATREMIA Status: Acute (2) Encephalopathy Code(s): G93.40 - ENCEPHALOPATHY, UNSPECIFIED Status: Acute (3) Pneumonia Code(s): J18.9 - PNEUMONIA, UNSPECIFIED ORGANISM Status: Suspected Qualifiers: Pneumonia type: due to unspecified organism Laterality: right Lung location: middle lobe of lung Qualified Code(s): J18.9 - Pneumonia, un specified organism (4) Coronary artery disease Code(s): I25.10 - ATHSCL HEART DISEASE OF [place] CORONARY ARTERY W/O ANG PCTRS Status: Chronic (5) Hypertension Code(s): I10 - ESSENTIAL (PRIMARY) HYPERTENSION Status: Chronic Qualifiers: Hypertension type: essential hypertension Qualified Code(s): I10 - E ssential (primary) hypertension (6) Abnormal MRI Code(s): R93.89 - ABNORMAL FINDINGS ON DX IMAGING OF OTH BODY STRUCTURES Status: Acute (7) Anemia Code(s): D64.9 - ANEMIA, UNSPECIFIED Status: Chronic Qualifiers: Anemia type: unspecified type Qualified Code(s): D64.9 - Anemia, unspecified (8) Tobacco abuse Code(s): Z72.0 - TOBACCO USE Status: Chronic (9) Alcohol abuse Code(s): F10.10 - ALCOHOL ABUSE, UNCOMPLICATED Status: Chronic - Plan Hyponatremia -stable - appears euvolemic and may be secondary to alcohol use/abuse - monitor - encourage alcohol cessation Balance changes - continue PT/OT Possible pneumonia - initiated abx for aspiration 09/25 with ceftriaxone and metronidazole Hx of stroke - continue aspirin Abnormal MRI - appreciate Neurosurgery recommendations - likely resolving contusion - f/u in outpatient setting in 4-6 weeks Hip effusion - f/u Ortho in outpatient setting Toe changes - small and c/w wart or callous. Defer to outpatient setting. dvt prophy - lovenox gi prophy - on home PPI Anticipate pt will need placement as a transition to home - case management consult placed for tomorrow. reviewed the plan of care with patient, no questions or further needs at end of eval.
[2020-09-26] MEDS: Enoxaparin Sodium 40 MG/0.4 ML SYRINGE SC SCH (08:46)
[2020-09-26] MEDS: Folic Acid 1 MG TAB PO SCH (08:46)
[2020-09-26] MEDS: Aspirin 81 mg Enteric Coated Tablet PO SCH (08:46)
[2020-09-26] MEDS: Allopurinol 100 MG TAB PO SCH (08:46)
[2020-09-26] MEDS: Thiamine 100 MG TAB PO SCH (08:47)
[2020-09-26] MEDS: Lisinopril 10 MG TAB PO SCH (08:47)
[2020-09-26] MEDS: Multivitamin W/ Minerals 1 TAB PO SCH (08:47)
[2020-09-26] MEDS: Magnesium Oxide 400 MG TAB PO SCH (08:47)
[2020-09-26] MEDS: Lidocaine 5% Patch TD SCH (08:49)
[2020-09-26] MEDS: cefTRIAXone\\ROCEPHIN 1 GM in Sodium Chloride 0.9% 100 ML IVPB SCH (14:23)
[2020-09-26] MEDS: Transdermal Patch Removal TOP SCH (22:25)
[2020-09-26] MEDS: Atorvastatin Calcium 40 MG TAB PO SCH (22:25)
[2020-09-27 05:31] LABS: Hemoglobin 13.2 g/dL (14.0-18.0); Mean Corpuscular Hemoglobin 30.9 pg (27.0-31.0); Mean Corpuscular Volume 90.7 fL (78.0-98.0); Platelet Count 247 thou/uL (130-400); RBC Distribution Width 13.1 % (11.5-14.5); Red Blood Cell (RBC) Count 4.28 mill/uL (4.70-6.10); White Blood Cell (WBC) Count 4.1 thou/uL (4.8-10.8)
[2020-09-27 05:47] LABS: Anion Gap 12 mmol/L (10-20); BUN (Urea Nitrogen) 13 mg/dL (8.4-25.7); Calc. Creatinine Clearance 136 mL/min (70-130); Calcium 8.6 mg/dL (7.8-10.44); Carbon Dioxide 22 mmol/L (23-31); Chloride 97 mmol/L (98-107); Glucose 89 mg/dL (80-115); Sodium 127 mmol/L (136-145)
[2020-09-27 05:52] LABS: Eosinophils 4 % (0-10); Lymphocytes 29 % (21-51); MDiff Complete? YES; Monocytes 15 % (0-10); Neutrophil 43 % (42-75); Platelet Morphology Comment Appears Adequate; Reactive Lymphocytes 9 % (0-10)
[2020-09-27] MEDS: metroNIDAZOLE 500 MG in Premix Bag 1 BAG IVPB SCH ×4 (05:53→23:06)
[2020-09-27] MEDS: Mag-Al Plus 1200 MG/1200 MG/120 MG/30 ML UDCUP PO SCH ×4 (05:54→23:06)
[2020-09-27] MEDS: Magnesium Oxide 400 MG TAB PO SCH (09:25)
[2020-09-27] MEDS: Thiamine 100 MG TAB PO SCH (09:25)
[2020-09-27] MEDS: Aspirin 81 mg Enteric Coated Tablet PO SCH (09:25)
[2020-09-27] MEDS: Allopurinol 100 MG TAB PO SCH (09:25)
[2020-09-27] MEDS: Lisinopril 10 MG TAB PO SCH (09:25)
[2020-09-27] MEDS: Multivitamin W/ Minerals 1 TAB PO SCH (09:25)
[2020-09-27] MEDS: Enoxaparin Sodium 40 MG/0.4 ML SYRINGE SC SCH (09:25)
[2020-09-27] MEDS: Folic Acid 1 MG TAB PO SCH (09:27)
[2020-09-27] MEDS: Lidocaine 5% Patch TD SCH (09:27)
--- NOTE | 2020-09-27 09:59 | PDOC.HOSPP ---
- Subjective Encounter Date: 09/27/20 Encounter Time: 09:50 Subjective: some episodic sob. no cough or fever. pos ringing in ears - Objective Vital Signs & Weight: Vital Signs (12 hours) Temp Pulse Resp BP BP Pulse Ox 09/27/20 09:25 152/98 H 09/27/20 05:00 151/97 H 09/27/20 04:00 98.0 F 62 12 151/97 H 97 09/27/20 01:00 117/61 09/27/20 00:00 98.0 F 79 12 117/61 100 Weight Weight 213 lb 11.2 oz I&O: 09/26/20 09/27/20 09/28/20 06:59 06:59 06:59 Intake Total 2047 1340 Output Total 1999 675 Balance 48 665 Result Diagrams: 09/27/20 05:12 09/27/20 05:12 Hospitalist ROS - Medication Medications: Active Medications Generic Name Dose Route Start Last Admin Trade Name Freq PRN Reason Stop Dose Admin Acetaminophen 650 mg 09/24/20 16:07 09/26/20 22:25 Acetaminophen 325 Mg Tab PO 650 mg Q6H PRN Administration Pain Al Hydroxide/Mg Hydroxide 30 ml 09/24/20 06:00 09/27/20 05:54 Mag-Al Plus 1200 Mg/1200 Mg/120 Mg/30 Ml Udcup PO 30 ml Q6HR COOKIE Administration Allopurinol 100 mg 09/25/20 09:00 09/27/20 09:25 Allopurinol 100 Mg Tab PO 100 mg DAILY COOKIE Administration Aspirin 81 mg 09/24/20 09:00 09/27/20 09:25 Aspirin 81 Mg Enteric Coated Tablet PO 81 mg DAILY COOKIE Administration Atorvastatin Calcium 40 mg 09/25/20 21:00 09/26/20 22:25 Atorvastatin Calcium 40 Mg Tab PO 40 mg HS COOKIE Administration Enoxaparin Sodium 40 mg 09/24/20 09:00 09/27/20 09:25 Enoxaparin Sodium 40 Mg/0.4 Ml Syringe SC 40 mg 0900 COOKIE Administration Folic Acid 1 mg 09/24/20 09:00 09/27/20 09:27 Folic Acid 1 Mg Tab PO 1 mg DAILY COOKIE Administration Hydralazine HCl 5 mg 09/24/20 12:01 09/25/20 21:16 Hydralazine 20 Mg/Ml Vial SLOW IVP 5 mg Q4H PRN Administration Hypertension Ceftriaxone Sodium 1 gm/ 100 mls @ 200 mls/hr 09/25/20 13:00 09/26/20 14:23 Sodium Chloride IVPB 100 mls Q24HR COOKIE Administration Metronidazole 500 mg/ Device 100 mls @ 100 mls/hr 09/25/20 18:00 09/27/20 05:53 IVPB 100 mls Q6HR COOKIE Administration Iron/Minerals/Multivitamins 1 tab 09/24/20 09:00 09/27/20 09:25 Multivitamin W/ Minerals 1 Tab PO 1 tab DAILY COOKIE Administration Lidocaine 2 patch 09/26/20 09:00 09/27/20 09:27 Lidocaine 5% Patch TD 2 patch DAILY COOKIE Administration Lisinopril 10 mg 09/25/20 09:00 09/27/20 09:25 Lisinopril 10 Mg Tab PO 10 mg DAILY COOKIE Administration Magnesium Oxide 400 mg 09/25/20 09:00 09/27/20 09:25 Magnesium Oxide 400 Mg Tab PO 400 mg DAILY COOKIE Administration Miscellaneous Medication 2 each 09/26/20 21:00 09/26/20 22:25 Lidocaine Patch Removal 1 Each TOP 2 each 2100 COOKIE Administration Pantoprazole Sodium 40 mg 09/25/20 09:00 09/27/20 09:25 Pantoprazole 40 Mg Tab PO 40 mg DAILY COOKIE Administration Sodium Chloride 10 ml 09/24/20 05:15 09/25/20 08:22 Sodium Chloride 0.9% (Pf) 10 Ml Vial FS 10 ml PRN PRN Administration RECONSTITUTION Thiamine HCl 100 mg 09/25/20 09:00 09/27/20 09:25 Thiamine 100 Mg Tab PO 100 mg DAILY COOKIE Administration Hospitalist Exam Vitals: Vital Signs (12 hours) Temp Pulse Resp BP BP Pulse Ox 09/27/20 09:25 152/98 H 09/27/20 05:00 151/97 H 09/27/20 04:00 98.0 F 62 12 151/97 H 97 09/27/20 01:00 117/61 09/27/20 00:00 98.0 F 79 12 117/61 100 Weight Weight 213 lb 11.2 oz General Appearance: awake alert Neck: no JVD Heart: RRR, no murmur Respiratory: CTAB Gastrointestinal: soft, non-distended, normal bowel sounds Extremities: no edema Neurological: cranial nerve grossly intact, normal sensation to touch Neurological - other findings: poor FNF movements bilat Musculoskeletal: normal tone Hosp A/P (1) Cerebral contusion Code(s): S06.339A - CONTUS/LAC CEREB, W LOC OF UNSP DURATION, INIT Status: Acute Qualifiers: Encounter type: initial encounter Laterality: left Loss of consciousness presence/duration: with LOC of unspecified duration Qualified Code(s): S06.329A - Contusion and laceration of left cerebrum with loss of consciousness of unspecified duration, initial encounter (2) Alcoholism Code(s): F10.20 - ALCOHOL DEPENDENCE, UNCOMPLICATED Status: Acute (3) Encephalopathy Code(s): G93.40 - ENCEPHALOPATHY, UNSPECIFIED Status: Acute (4) Hyponatremia Code(s): E87.1 - HYPO-OSMOLALITY AND HYPONATREMIA Status: Acute (5) Coronary artery disease Code(s): I25.10 - ATHSCL HEART DISEASE OF [place] CORONARY ARTERY W/O ANG PCTRS Status: Chronic Qualifiers: Coronary Disease-Associated Artery/Lesion type: [place] artery [place] vs. transplanted heart: [place] heart Associated angina: without angina Qualified Code(s): I25.10 - Atherosclerotic heart disease of [place] coronary artery without angina pectoris (6) Hypertension Code(s): I10 - ESSENTIAL (PRIMARY) HYPERTENSION Status: Chronic Qualifiers: Hypertension type: essential hypertension Qualified Code(s): I10 - Essential (primary) hypertension (7) Tobacco abuse Code(s): Z72.0 - TOBACCO USE Status: Chronic (8) Pneumonia Code(s): J18.9 - PNEUMONIA, UNSPECIFIED ORGANISM Status: Suspected Qualifiers: Pneumonia type: due to Pneumococcus Laterality: right Lung location: middle lobe of lung Qualified Code(s): J13 - Pneumonia due to Streptococcus pneumoniae - Plan PT/OT eval continue IV antibx vitamins/alcohol abstinencecont to monitor electrolytes
--- NOTE | 2020-09-27 11:21 | PQF ---
a CLINICAL DOCUMENTATION CLARIFICATION FORM: Dear Dr. JARED STEWART Date: 09-27-20 Please exercise your independent, professional judgment in responding to the clarification form. Clinical indicators are provided on the bottom of this form for your review. Please check appropriate box(es): [ a ] Encephalopathy: Type: [ a ] Acute [ ] Subacute [ ] Chronic Etiology: [ ] Hypertensive [ ] Metabolic [ a ] Toxic [ ] Other (please specify) [ ] Transient Alteration of Awareness [ ] Other diagnosis [ ] Unable to determine In addition, please specify: Present on Admission (POA): [ ] Yes [ ] No [ ] Unable to determine For continuity of documentation, please document condition throughout progress notes and discharge summary. Thank You. To be completed by CDI/Coding staff for physician review: CLINICAL INDICATORS - SIGNS / SYMPTOMS / LABS / RESULTS AND LOCATION IN EMR: ER DX: AMS, ALCOHOL INTOXICATION, HYPONATREMIA R/O CVA H&P 09-24-20: AT TIME OF MY EVALUATION PATIENT WAS STILL INTOXICATED AND WAS NOT VERY COHERENT. ACUTE ENCEPHALOPATHY 2/2 TO ALCOHOL INTOXICATION/HEAD TRAUMA, LEFT FRONTAL LOBE LESION POSSIBLE INFARCT/TRAUMATIC, NEUROSX CONSULT, MRI IN AM, NEUROLOGY CONSULT, HYPONATREMIA RISK FACTORS / RESULTS AND LOCATION IN EMR: ER DX: AMS, ALCOHOL INTOXICATION, HYPONATREMIA R/O CVA H&P 09-24-20: AT TIME OF MY EVALUATION PATIENT WAS STILL INTOXICATED AND WAS NOT VERY COHERENT. ACUTE ENCEPHALOPATHY 2/2 TO ALCOHOL INTOXICATION/HEAD TRAUMA, LEFT FRONTAL LOBE LESION POSSIBLE INFARCT/TRAUMATIC, NEUROSX CONSULT, MRI IN AM, NEUROLOGY CONSULT, HYPONATREMIA TREATMENTS / RESULTS AND LOCATION IN EMR: H&P 09-24-20: AT TIME OF MY EVALUATION PATIENT WAS STILL INTOXICATED AND WAS NOT VERY COHERENT. ACUTE ENCEPHALOPATHY 2/2 TO ALCOHOL INTOXICATION/HEAD TRAUMA, LEFT FRONTAL LOBE LESION POSSIBLE INFARCT/TRAUMATIC, NEUROSX CONSULT, MRI IN AM, NEUROLOGY CONSULT, HYPONATREMIA CDS Signature: Louann Shearer Phone #: [phone] Date/Time: 09-27-20 This is a permanent part of the Medical Record [facility]
[2020-09-27] MEDS: cefTRIAXone\\ROCEPHIN 1 GM in Sodium Chloride 0.9% 100 ML IVPB SCH (14:03)
--- NOTE | 2020-09-27 18:23 | EKG ---
Test Reason : Blood Pressure : / mmHG Vent. Rate : 067 BPM Atrial Rate : 067 BPM P-R Int : 138 ms QRS Dur : 082 ms QT Int : 434 ms P-R-T Axes : 032 015 015 degrees QTc Int : 458 ms Normal sinus rhythm Normal ECG Confirmed by ELIANE CURTIS, DR. Mcdermott ([id number]) on 09/27/2020 6:22:59 PM Referred By: AFFRAM Confirmed By:DR. Sharron DEL RIO MD
[2020-09-27] MEDS: Atorvastatin Calcium 40 MG TAB PO SCH (20:25)
[2020-09-27] MEDS: Transdermal Patch Removal TOP SCH (21:00)
[2020-09-27 22:52] LABS: SARS-CoV-2 PCR by NAA Not Detected (NotDetected)
[2020-09-28] MEDS: Acetaminophen 325 MG TAB PO PRN (02:55)
[2020-09-28] MEDS: metroNIDAZOLE 500 MG in Premix Bag 1 BAG IVPB SCH ×2 (05:23→13:45)
[2020-09-28 07:54] VITALS: BP 153/92; TEMP 97.7
[2020-09-28] MEDS: Aspirin 81 mg Enteric Coated Tablet PO SCH (08:36)
[2020-09-28] MEDS: Multivitamin W/ Minerals 1 TAB PO SCH (08:36)
[2020-09-28] MEDS: Lidocaine 5% Patch TD SCH (08:36)
[2020-09-28] MEDS: Magnesium Oxide 400 MG TAB PO SCH (08:36)
[2020-09-28] MEDS: Enoxaparin Sodium 40 MG/0.4 ML SYRINGE SC SCH (08:36)
[2020-09-28] MEDS: Allopurinol 100 MG TAB PO SCH (08:37)
[2020-09-28] MEDS: Lisinopril 10 MG TAB PO SCH (08:37)
[2020-09-28] MEDS: Folic Acid 1 MG TAB PO SCH (08:37)
[2020-09-28] MEDS: Thiamine 100 MG TAB PO SCH (08:37)
[2020-09-28] MEDS: Mag-Al Plus 1200 MG/1200 MG/120 MG/30 ML UDCUP PO SCH ×2 (08:39→13:45)
[2020-09-28] MEDS ORDERED: Cefdinir 300 MG CAP PO SCH (09:30)
--- NOTE | 2020-09-28 09:50 | DIS ---
DATE OF ADMISSION: 09/24/2020 DATE OF DISCHARGE: 09/28/2020 PRIMARY CARE PROVIDER: AVIS Miller. DISPOSITION: Discharged home. FINAL DIAGNOSES: 1. Acute encephalopathy, resolved. 2. Alcohol intoxication. 3. Pneumonia, right sided. 4. Contusion of left cerebral hemisphere. 5. Hyponatremia, resolved. 6. Coronary artery disease. 7. Hypertension. 8. Tobacco abuse. DISCHARGE MEDICATIONS: New Medicines: 1. Omnicef 600 mg daily for 5 days. 2. Folic acid 1 mg daily. 3. Thiamine 100 mg daily. Old Medicines: 1. Allopurinol 100 mg a day. 2. Atorvastatin 40 mg a day. 3. Zestril 10 mg a day. 4. Protonix 40 mg a day. 5. Albuterol sulfate HFA 1 puff q.6 hours p.r.n. ALLERGIES: NO KNOWN DRUG ALLERGIES. DIET: Heart healthy. CODE STATUS: Full. PENDING AT TIME OF DISCHARGE: Nothing. HOSPITAL COURSE: The patient admitted through this emergency room to the [facility]. He was brought to the emergency room. Found crouching by the side of the road intoxicated. He was brought to the hospital, had hyponatremia, alcohol level of 192. CT of the head was consistent with a left frontal contusion. He was started on vitamins. He was found to have probable right-sided pneumonia, started on IV antibiotics. His initial laboratory; sodium 128, potassium 4.1, BUN 13, creatinine 0.86. Liver function tests normal. White cell count 5.0, hemoglobin 14.4, platelet count 239,000. COVID was negative. He did not have blood cultures apparently in our facility. Blood cultures done in an outlying facility revealed no growth in 5 days. Influenza negative. The patient was treated with IV antibiotics, PT, sodium chloride IV, continued on his home medicines. 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 He is currently walking without a walker. He desires to go home. He is being discharged for 5 more days of antibiotics, discharged on folic acid and thiamine due to his alcoholism. His regular medicines are being continued. He has been told he needs followup in 3-7 days with his primary care provider. He will need a chest x-ray in 2-3 weeks for clearing of his pneumonia. He will need MRI of the brain in the future for healing of his cerebral contusion. Job ID: [id number]
[2020-09-29] MEDS ORDERED: Cefdinir 300 MG CAP PO SCH (09:00)
== END 2020-09-28 13:35 | disposition home or self-care (01) | DRG 82 ==
LOC: ERS 02:41 → 2SE 05:04 → OBSVTOIN 21:39
PROVIDERS: ADMIT Student in an Organized Health Care Education/Training Program; ATTEND Internal Medicine
DX: S06.329A Contusion and laceration of left cerebrum with loss of consciousness of unspecified duration, initial encounter (principal); G92 Toxic encephalopathy; J13 Pneumonia due to Streptococcus pneumoniae; E87.1 Hypo-osmolality and hyponatremia; F10.229 Alcohol dependence with intoxication, unspecified; Z20.822 Contact with and (suspected) exposure to COVID-19; I25.10 Atherosclerotic heart disease of native coronary artery without angina pectoris; I10 Essential (primary) hypertension; E78.5 Hyperlipidemia, unspecified; Y90.6 Blood alcohol level of 120-199 mg/100 ml; M25.551 Pain in right hip; E86.0 Dehydration; K29.20 Alcoholic gastritis without bleeding; G93.89 Other specified disorders of brain; Z96.643 Presence of artificial hip joint, bilateral; X58.XXXA Exposure to other specified factors, initial encounter; F17.210 Nicotine dependence, cigarettes, uncomplicated; E87.6 Hypokalemia; Z95.1 Presence of aortocoronary bypass graft; Z79.899 Other long term (current) drug therapy; Z79.52 Long term (current) use of systemic steroids; Z79.51 Long term (current) use of inhaled steroids; Z91.81 History of falling
CPT/HCPCS: 36415; 36416; 70450; 70551; 71045; 80048; 80053; 80061; 80307; 84484; 85025; 87635; 93005; 93010; 95712; 95819; 95957; 96374; C9113; J0360; J0696; J1650; J2270; J3411; J3475; J3490; Q0162; S0028; U0003; U0005